=== PATIENT | male | born 1995 | race Caucasian/White ===

== ENCOUNTER 2017-06-25 21:18 | Inpatient (IN) | payer BC, OTHER ==
[~2017-06-25] VITALS: Ht 170.2 cm; Wt 72.5 kg
[2017-06-25 21:27] VITALS: O2SAT 98
[2017-06-25] MEDS ORDERED: SODIUM CHLORIDE 0.9% 1000ML 1,000 ML IV STA ×2 (21:27→22:13)
--- NOTE | 2017-06-25 21:32 | EMERGENCY ROOM VISIT NOTE ---
History Report prepared by Amber: Darrel Mcclelland Under the Supervision of: Cassia RodriguezO. First contact with patient: 21:20 Chief Complaint: OVERDOSE (INTENTIONAL) Stated Complaint: OVERDOSE History of Present Illness The patient is a 21 year old male who presents to the Emergency Room after overdosing on Benadryl at 1830 today. The patient reports taking 12 regular sized Benadryl at 1830, he did not take any other medications alongside the Benadryl. The patient states that he took the Benadryl with the intention of killing himself. He notes having suicidal thoughts since 2014, but had never tried taking extra pills in the past. The patient states that his suicidal thoughts are the result of stress at home and work. He denies experiencing any homicidal thoughts, hallucinations, feelings of being watched/followed, abdominal pain, chest pain, heart palpitations, or headache. The patient notes being dehydrated and having a runny nose. The patient denies any past medical history of asthma or IBS. He notes a history of acid reflux, for which he takes Prevacid. Source of History: patient Onset: 1829 Today Position: other (global ) Quality: other (overdose ) Associated Symptoms: No headache, No chest pain, No abdominal pain Note: Denies: Homicidal thoughts, hallucinations, feelings of being watched/followed, heart palpitations, history of Asthma or IBS. Associated Symptoms: Dehydration. Review of Systems See HPI for pertinent positives & negatives. A total of 10 systems reviewed and were otherwise negative. Past Medical & Surgical Medical Problems: (1) ADHD (2) GERD (gastroesophageal reflux disease) (3) Major depressive disorder, recurrent Family History Patient reports no known family medical history. Social History Drug Use: other (overdose on benadryl ) Marital Status: single Current/Historical Medications Scheduled Fluoxetine (Prozac), 20 MG PO BID Lisdexamfetamine Dimesylate (Vyvanse), Unknown Dose PO DAILY Lisdexamfetamine Dimesylate (Vyvanse), 1 CAP PO QAM Allergies Coded Allergies: No Known Allergies (Unverified , 06/25/17) Physical Exam Vital Signs Date Time Temp Pulse Resp B/P (MAP) Pulse Ox O2 Delivery O2 Flow Rate FiO2 06/26/17 03:38 88 18 135/72 98 Room Air 06/26/17 02:57 100 18 138/80 100 Room Air 06/26/17 01:28 94 18 128/78 99 Room Air 06/26/17 01:17 96 06/26/17 00:35 91 20 109/57 99 Room Air 06/25/17 23:37 93 20 146/91 95 Room Air 06/25/17 23:06 101 20 143/88 99 Room Air 06/25/17 22:23 96 18 157/91 98 Room Air 06/25/17 21:48 101 18 117/87 97 Room Air 06/25/17 21:27 98 Room Air 06/25/17 21:26 37.0 108 20 127/82 98 Room Air 06/25/17 21:22 111 Physical Exam GENERAL: alert, well appearing, well nourished, no distress, non-toxic EYE EXAM: normal conjunctiva, PERRL and EOM's grossly intact OROPHARYNX: no exudate, no erythema, lips, buccal mucosa, and tongue normal and mucous membranes are dry NECK: supple, no nuchal rigidity, no adenopathy, non-tender LUNGS: Clear to auscultation. Normal chest wall mechanics HEART: no murmurs, S1 normal and S2 normal ABDOMEN: abdomen soft, non-tender, normo-active bowel sounds, no masses, no rebound or guarding. BACK: Back is symmetrical on inspection and there is no deformity, no midline tenderness, no CVA tenderness. SKIN: no rashes and no bruising UPPER EXTREMITIES: upper extremities are grossly normal. LOWER EXTREMITIES: No pitting edema. NEURO EXAM: Normal sensorium, cranial nerves II-XII [grossly] intact, normal speech, no [gross] weakness of arms, no [gross] weakness of legs. Patient answers orientation questions appropriately while intermittently giving bizarre answers to other questions. Medical Decision & Procedures ER Provider Diagnostic Interpretation: Radiology results have been interpreted by the radiologist and reviewed by me. CHEST ONE VIEW PORTABLE CLINICAL HISTORY: Palpitations. Overdose. COMPARISON STUDY: No previous studies for comparison. FINDINGS: The cardiac and mediastinal contours are normal. There is no evidence of focal pulmonary consolidation. There is no evidence of failure. No pleural effusions are visualized.[ IMPRESSION: No active disease in the chest. Electronically signed by: Aroldo Faustin M.D. 06/25/2017 9:40 PM Dictated Date/Time: 06/25/2017 9:40 PM Laboratory Results 06/25/17 21:35 Red Blood Count 4.84, Mean Corpuscular Volume 91.1, Mean Corpuscular Hemoglobin 32.9, Mean Corpuscular Hemoglobin Concent 36.1, Mean Platelet Volume 9.9, Neutrophils (%) (Auto) 47.1, Lymphocytes (%) (Auto) 34.2, Monocytes (%) (Auto) 16.9, Eosinophils (%) (Auto) 1.2, Basophils (%) (Auto) 0.4, Neutrophils # (Auto ) 2.46, Lymphocytes # (Auto) 1.78, Monocytes # (Auto) 0.88, Eosinophils # (Auto ) 0.06, Basophils # (Auto) 0.02 06/25/17 21:35 Test 06/25/17 21:35 06/25/17 22:15 White Blood Count 5.21 K/uL (4.8-10.8) Red Blood Count 4.84 M/uL (4.7-6.1) Hemoglobin 15.9 g/dL (14.0-18.0) Hematocrit 44.1 % (42-52) Mean Corpuscular Volume 91.1 fL (80-100) Mean Corpuscular Hemoglobin 32.9 pg (25-34) Mean Corpuscular Hemoglobin Concent 36.1 g/dl (32-36) Platelet Count 364 K/uL (130-400) Mean Platelet Volume 9.9 fL (7.4-10.4) Neutrophils (%) (Auto) 47.1 % Lymphocytes (%) (Auto) 34.2 % Monocytes (%) (Auto) 16.9 % Eosinophils (%) (Auto) 1.2 % Basophils (%) (Auto) 0.4 % Neutrophils # (Auto) 2.46 K/uL (1.4-6.5) Lymphocytes # (Auto) 1.78 K/uL (1.2-3.4) Monocytes # (Auto) 0.88 K/uL (0.11-0.59) Eosinophils # (Auto) 0.06 K/uL (0-0.5) Basophils # (Auto) 0.02 K/uL (0-0.2) RDW Standard Deviation 44.0 fL (36.4-46.3) RDW Coefficient of Variation 13.3 % (11.5-14.5) Immature Granulocyte % (Auto) 0.2 % Immature Granulocyte # (Auto) 0.01 K/uL (0.00-0.02) Prothrombin Time 10.8 SECONDS (9.0-12.0) Prothromb Time International Ratio 1.0 (0.9-1.1) Anion Gap 9.0 mmol/L (3-11) Est Creatinine Clear Calc Drug Dose 116.0 ml/min Estimated GFR () 133.0 Estimated GFR (Non- 114.8 BUN/Creatinine Ratio 7.4 (10-20) Calcium Level 9.3 mg/dl (8.5-10.1) Phosphorus Level 3.0 mg/dl (2.5-4.9) Magnesium Level 2.4 mg/dl (1.8-2.4) Total Bilirubin 0.2 mg/dl (0.2-1) Aspartate Amino Transf (AST/SGOT) 22 U/L (15-37) Alanine Aminotransferase (ALT/SGPT) 45 U/L (12-78) Alkaline Phosphatase 186 U/L (45-117) Total Protein 8.4 gm/dl (6.4-8.2) Albumin 4.1 gm/dl (3.4-5.0) Globulin 4.3 gm/dl (2.5-4.0) Albumin/Globulin Ratio 0.9 (0.9-2) Lipase 109 U/L (73-393) Thyroid Stimulating Hormone (TSH) 4.950 uIu/ml (0.300-4.500) Free Thyroxine 0.98 ng/dl (0.80-1.60) Salicylates Level 2.1 mg/dl (2.8-20) Acetaminophen Level < 2 ug/ml (10-30) Ethyl Alcohol mg/dL < 3.0 mg/dl (0-3) Urine Color YELLOW Urine Appearance CLEAR (CLEAR) Urine pH 7.5 (4.5-7.5) Urine Specific [place] 1.012 (1.000-1.030) Urine Protein NEG (NEG) Urine Glucose (UA) NEG (NEG) Urine Ketones NEG (NEG) Urine Occult Blood NEG (NEG) Urine Nitrite NEG (NEG) Urine Bilirubin NEG (NEG) Urine Urobilinogen NEG (NEG) Urine Leukocyte Esterase NEG (NEG) Urine Opiates Screen NEG (NEG) Urine Methadone, Qualitative NEG (NEG) Urine Barbiturates NEG (NEG) Urine Phencyclidine (PCP) Level NEG (NEG) Ur Amphetamine/Methamphetamine POS (NEG) MDMA (Ecstasy) Screen NEG (NEG) Urine Benzodiazepines Screen NEG (NEG) Urine Cocaine Metabolite NEG (NEG) Urine Marijuana (THC) NEG (NEG) Laboratory results per my review. Medications Administered Medications (Trade) Dose Ordered Sig/Mert Route Start Time Stop Time Status Last Admin Dose Admin Sodium Chloride 1,000 ml @ 999 mls/hr Q1H1M STAT IV 06/25/17 21:27 06/25/17 22:27 DC 06/25/17 21:45 999 MLS/HR Sodium Chloride 1,000 ml @ 999 mls/hr Q1H1M STAT IV 06/25/17 22:13 06/25/17 23:13 DC 06/25/17 22:13 999 MLS/HR Potassium Chloride (Klor-Con M10) 40 meq NOW STAT PO 06/26/17 02:37 06/26/17 02:38 DC 06/26/17 02:56 40 MEQ ECG Per My Interpretation Indication: toxicologic Rate (beats per minute): 107 Rhythm: sinus tachycardia Findings: no acute ischemic change, no ectopy, other (normal axis, normal intervals, no terminal r wave in avr. ) ED Course 2120: The patient was evaluated in room A3. A complete history and physical exam was performed. 7: Ordered Sodium Chloride 1000 ml @ 999 mls/hr IV 3: Ordered Sodium Chloride 1000 ml @ 999 mls/hr IV 2317: I reevaluated the patient. He is resting comfortably and his heart rate has improved. Per the patient's family, the patient had recently gotten engaged to his girlfriend after finding out that his girlfriend was . The patient's girlfriend had a miscarriage, and they subsequently ended their relationship. 0145: No further tachycardia. Pt states feeling well. No other new symptoms. No confusion/hallucinations. 0210: Discussed with Juli Ramirez, she will evaluate the patient for admission. 0309: Voluntary admission form signed. Patient to be placed on 3 S. Medical Decision Differential diagnosis: Etiologies such as toxicologic, infection, hypoglycemia, electrolyte abnormalities, cardiac sources, intracerebral event, neurologic, as well as others were entertained. Pt with mild anticholinergic symptoms noted at presentation. These resolved with IVF. Pt outside window for activated charcoal. Pt monitored thru half life of benadryl without any recurrent anticholinergic or delayed symptoms or reactions. Pt seen by Ashley from 3S and and 201 signed. VS remained stable, other labs reassuring. T4 added. K repleted. I do not suspect any additional coingestion, infection, or trauma. Pt with depression and SI. Medication Reconcilliation Current Medication List: was personally reviewed by me Blood Pressure Screening Patient's blood pressure: Elevated blood pressure Blood pressure disposition: Elevated BP felt to be situational Impression Primary Impression: Intentional overdose of drug in tablet form Additional Impression: Suicidal ideation Scribe Attestation The scribe's documentation has been prepared under my direction and personally reviewed by me in its entirety. I confirm that the note above accurately reflects all work, treatment, procedures, and medical decision making performed by me. Departure Information Dispostion Still a Patient Referrals No Doctor, Assigned (PCP) Patient Instructions My [facility] Problem Qualifiers
--- NOTE | 2017-06-25 21:41 | DIAGNOSTIC IMAGING REPORT ---
CHEST ONE VIEW PORTABLE CLINICAL HISTORY: Palpitations. Overdose. COMPARISON STUDY: No previous studies for comparison. FINDINGS: The cardiac and mediastinal contours are normal. There is no evidence of focal pulmonary consolidation. There is no evidence of failure. No pleural effusions are visualized.[ IMPRESSION: No active disease in the chest. Electronically signed by: Aroldo Faustin M.D. 06/25/2017 9:40 PM Dictated Date/Time: 06/25/2017 9:40 PM
[2017-06-25] MEDS ORDERED: LISD20CA PO (21:49)
[2017-06-25 21:57] LABS: BASO % 0.4 %; BASO ABS # 0.02 K/uL (0-0.2); EOS % 1.2 %; EOS ABS # 0.06 K/uL (0-0.5); HEMATOCRIT 44.1 % (42-52); HEMOGLOBIN 15.9 g/dL (14.0-18.0); IG# 0.01 K/uL (0.00-0.02); LYMPH % 34.2 %; LYMPH ABS # 1.78 K/uL (1.2-3.4); MEAN CELL VOLUME 91.1 fL (80-100); MEAN CORPUSCULAR HEMOGLOBIN 32.9 pg (25-34); MEAN CORPUSCULAR HGB CONC 36.1 g/dl (32-36); MEAN PLATELET VOLUME 9.9 fL (7.4-10.4); MONO % 16.9 %; MONO ABS # 0.88 K/uL (0.11-0.59); NEUT % 47.1 %; NEUT ABS # 2.46 K/uL (1.4-6.5); PLATELET COUNT 364 K/uL (130-400); RED CELL DISTRIBUTION WIDTH CV 13.3 % (11.5-14.5); WHITE BLOOD COUNT 5.21 K/uL (4.8-10.8)
[2017-06-25 22:16] LABS: ALBUMIN 4.1 gm/dl (3.4-5.0); CALCIUM 9.3 mg/dl (8.5-10.1); CREATININE 0.95 mg/dl (0.60-1.40); POTASSIUM 3.3 mmol/L (3.5-5.1)
[2017-06-25 22:27] LABS: TOTAL PROTEIN 8.4 gm/dl (6.4-8.2)
[2017-06-26] MEDS ORDERED: POTASSIUM CHLORIDE 10 MEQ TABCR PO STA (02:37)
[2017-06-26 03:38] VITALS: O2SAT 98
[2017-06-26] MEDS ORDERED: NURSING VERBAL MED ORDER ONE (03:45)
[2017-06-26] MEDS ORDERED: ALUMINUM/MAGNESIUM SUSP 30 ML UDC PO PRN (04:00)
[2017-06-26] MEDS ORDERED: BISMUTH SUBSALICYLATE PER ML OMNICELL CHARGE PO PRN (04:00)
[2017-06-26] MEDS ORDERED: MAGNESIUM HYDROXIDE SUSP 30 ML UDC PO PRN (04:00)
[2017-06-26] MEDS ORDERED: SODIUM CHLORIDE 0.65% NA SOLN 45 ML (OCEAN) PRN (04:00)
[2017-06-26] MEDS ORDERED: ACETAMINOPHEN 325 MG TAB PO PRN (04:00)
[2017-06-26] MEDS ORDERED: hydrOXYzine HCL 25 MG TAB PO PRN ×2 (04:00)
[2017-06-26 05:02] VITALS: BP 132/72; PULSE 88; TEMP 37; Ht 170.2 cm; Wt 72.5 kg
[2017-06-26] MEDS ORDERED: LISD50CA4 PO (05:29)
[2017-06-26] MEDS ORDERED: FLUO20CA35 PO (06:47)
[2017-06-26 06:58] VITALS: BP_SYST 124; BP_DIAS 70; BP_DIAS 73; PULSE 64; PULSE 96; TEMP 36.5
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
[2017-06-26] MEDS ORDERED: COUGH DROP (SUGAR FREE) LOZ 24 LOZ/1 BOX LOZ PRN (13:00)
[2017-06-26] MEDS: NICOTINE 7 MG/24 HR TDSY TD SCH (14:07)
[2017-06-27 06:58] VITALS: BP_SYST 125; BP_SYST 132; BP_DIAS 75; BP_DIAS 76; PULSE 58; PULSE 88; TEMP 36.6
[2017-06-27] MEDS: NICOTINE 7 MG/24 HR TDSY TD SCH (09:10)
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
[2017-06-28 06:49] VITALS: BP_SYST 117; BP_SYST 124; BP_DIAS 68; PULSE 65; PULSE 79; TEMP 36.3
[2017-06-28] MEDS: NICOTINE 7 MG/24 HR TDSY TD SCH (09:07)
[2017-06-28] MEDS: FLUOXETINE HCL 20 MG CAP PO SCH (09:07)
--- NOTE | 2017-06-28 13:05 | Psychiatric Progress Notes ---
Progress Note Date of Service Jun 28, 2017. Interval History Jatin Sarabia is a 21-year-old male admitted on Jun 26, 2017 at 03:48 who currently lives in [place], [place] with his mother, father, and 3 younger brothers , has a history of depression and ADHD, and was admitted on a 201 voluntary commitment after a suicide attempt by overdose on diphenhydramine. He was brought to the ER by ambulance from home. Chief Complaint "Good.". Subjective Patient was seen & assessed interval progress reviewed with Treatment Team. He reports that his mood is good today. He is adjusting to being on the unit, and finding support from some of the male peers. He has been visiting with his parents and they are encouraging him to consider going to a place they call [facility], which is a spiritually based residential facility, considered to be a form of rehab. He was at first not interested, fearing that he would be mandated to stay there they entire year of the proposed treatment, but his mother reassured him that if he didn't think that it was working, he could leave. He is now willing to explore this as an option. I informed him that we have collaborated with his OP psychiatrist and we are agreed that we will DC all stimulants at this time, due to his recent history of abusing substances, which he understands. He is feeling more optimistic, and denies any SI since admission. He denies side effects to meds. Review of Systems Constitutional: No fever, No chills, No sweats, No weight loss, No weakness, No fatigue, No problem reported ENT: No hearing loss, No unusual epistaxis, No nasal symptoms, No sore throat, No tinnitus, No dental problems, No trouble swallowing, No problem reported Respiratory: No cough, No sputum, No wheezing, No shortness of breath, No dyspnea on exertion, No dyspnea at rest, No hemoptysis, No problem reported Cardiovascular: No chest pain, No orthopnea, No PND, No edema, No claudication , No palpitations, No problem reported Abdomen: No pain, No nausea, No vomiting, No diarrhea, No constipation, No GI bleeding, No problem reported Musculoskeletal: No joint pain, No muscle pain, No swelling, No calf pain, No problem reported Neurologic: No memory loss, No paralysis, No weakness, No numbness/tingling, No vertigo, No balance problems, No problem reported Psychiatric: No depression symptoms, No anhedonism, No anxiety, No insomnia, No substance abuse, No problem reported Integumentary: No rash, No itch, No new/changing skin lesions, No color change , No bleeding, No problem reported Sleep Information Total Hours of Sleep: 7.00 Meal Information Percent of Breakfast Consumed: 100 Percent of Lunch Consumed: 100 Percent of Dinner Consumed: 100 Mental Status Exam During interview pt is: alert and oriented, cooperative Appearance: appropriately dressed, disheveled, other (Malodorous, unshaven, short hair is disheveled, wearing glasses) Eye contact is: good Motor behavior is: steady gait & station, no abnormal motor movements Speech: normal in rate, rhythm & volume Affect: constricted Mood is: other ("Good.") Thought process: goal directed, linear, logical Thought content: reality based without delusions Suicidal thought are: denied (But admits to suicide attempt by overdose prior to admission) Homicidal thoughts are: denied Hallucinations: denies auditory, denies visual Cognition: memory grossly intact (Except following overdose), attention grossly intact, language grossly intact Intelligence estimated to be: consistent with level of education Insight: limited Judgement: limited Summary of Past History Records from [facility] reviewed. Most recent appointment with Dr. Melara was on 04/28/2017, at which time the patient reported he had run out of medications for several weeks. He had not been seen since November 2016, and was supposed to follow up in 12 weeks. He noted mood and focus were both worse when off medications, and was started back on Vyvanse and Prozac at his previous doses. 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 He continued to report lack of interest and motivation, but good attention and impulsivity. Anxiety was improved, and he was better able to interact with strangers at work. He had recently had all of his upper teeth removed due to poor dentition. Current diagnoses are unspecified depression, unspecified anxiety, and ADHD combined type. Spoke with Dr. Melara, who states that [facility]'s biggest issue and outpatient treatment has been repeated noncompliance. He often goes off medications for months at a time and does not follow up as directed. He has not been compliant with therapy and has not been seen by his therapist and months. He has continued him on fluoxetine due to the lower risk of discontinuation syndrome with missed doses/noncompliance. Discussed options to target depression and anxiety, including increasing fluoxetine versus switching to a different antidepressant, however he would have to be willing to commit to good medication adherence in order to switch to another agent. Also discussed recommendations to discontinue Focalin due to substance abuse, and consider a retrial of Strattera. Dr. Melara also recommends the patient be re-referred for individual therapy and substance abuse treatment through [facility]. Medication Trials Dexedrine Spansules, Focalin XR, Focalin, Concerta, Adderall, Strattera, quetiapine. He did not have a good response to most ADHD medications, but does well with Vyvanse. Restoril has been used for sleep in the past. Impression Adjusting to the unit and is now considering a rehab suggested by his parents, [facility], which has a year long program. We are recommending DC of all controlled substances at this time due to substance abuse. Prozac restarted, today. Will consider increasing to 60 mg. in near future. Plan (1) Suicidal ideation The patient is admitted to [facility] ([facility] unit) on q 15 min checks (behavioral with suicide precautions) for safety. The patient will participate in group, recreational and milieu therapies and will be offered additional individual and family sessions as clinically appropriate. 06/27 -family meeting held yesterday. Parents removed drug paraphernalia, and confirmed that guns are secured and he will not have access. Should also discuss a plan for them to manage his medications, specifically stimulant medications, as they state he has been abusing them and running out early. (2) Major depressive disorder, recurrent 06/26 - Continue current medications: Prozac 40mg qAM - Coordination of care with outpatient provider - Encourage participation in group programming including activities and therapy - Family meeting with identified supports if willing 06/27 -Continue current medications -fluoxetine was not ordered on admission, so will resume it today. Patient indicates that he does not think medications have been especially helpful recently, but also states mood worsened in the context of his breakup, and was good before that. In addition, he has been abusing multiple substances, which also impacts mood. We will contact Dr. Melara to discuss his medications and can consider the option of switching him to a different antidepressant. -Family meeting held with parents yesterday, who are supportive. 06/28 - Continue current meds. Consider increasing Prozac to 60 mg. soon - Explore D&A treatment including [facility] rehab (3) ADHD 06/26 - Will hold Vyvanse 50mg while here on the unit 06/27 -Discussed case with Dr. Melara, outpatient psychiatrist; in light of substance abuse, will discontinue Focalin. Can consider a retrial of Strattera. (4) Substance abuse Patient has been abusing Robitussin, Benadryl, cannabis, and stimulants (? Prescription stimulants as well as recent use of cocaine and methamphetamine). UDS positive for amphetamine/methamphetamine on admission, and will need to follow up on confirmatory report. Discussed with outpatient psychiatrist, and will discontinue Focalin as it is a controlled substance and unsafe given polysubstance abuse. Refer to [facility] for substance abuse treatment. 06/28 - Recommend D&A counseling, through [facility] - Patient considering a year long program at [facility] Discharge / Aftercare Planning Primary Care Physician: Name: Dr. Peraza Appointment Notes: appoinemtn to be scheduled as needed Psychiatrist: Name: Luciana Melara Date of Appointment: Jul 14, 2017 Time of Appointment: 10:00 am Appointment Notes: [facility] [place] [address] Therapist: Name: Luciana Oakley Date of Appointment: Jul 05, 2017 Time of Appointment: 10:00 am Appointment Notes: [facility] [place] [employer] [facility] [address] [employer]er: Name: adalberto Visit Code E&M Code: 41831 Inventory Assets Strengths: current outpatient providers, support of family Needs: healthy coping skills, processing and acceptance of termination of relationship Risk Factors Assessment Male: Yes : Yes /single/: Yes Higher / Fall in social status: No Health problems: No Mental Health Diagnoses: Yes Previous attempt: No Family history of suicide: No Previous psychiatric stay: No Hopelessness: Yes Smoker: Yes Protective Factors Assessment Adventist beliefs: Yes : No Responsible for young children: No Employed: Yes Stable relationships: Yes Supportive family: Yes Good rapport with provider: Yes Data Vital Signs Last 24 Hrs: Date Time Temp Pulse Resp B/P (MAP) Pulse Ox O2 Delivery O2 Flow Rate FiO2 06/28/17 06:49 36.3 65 16 117/68 79 124/68 Meds Administered Last 24 Hrs: Meds Administered (Past 24Hrs) Medications (Trade) Dose Ordered Sig/Mert Route Start Time Stop Time Status Last Admin Dose Admin Nicotine (Nicoderm Cq 7 Mg Patch) 1 patch QAM TD 06/27/17 09:00 07/27/17 08:59 06/28/17 09:07 1 PATCH Miscellaneous (Remove Nicoderm Patch) 1 ea HS N/A 06/26/17 22:00 07/26/17 21:59 06/27/17 21:16 1 EA Fluoxetine HCl (Prozac Cap) 40 mg QAM PO 06/28/17 09:00 07/28/17 08:59 06/28/17 09:07 40 MG Lab Results Last 24 Hrs: 06/25/17 21:35 Red Blood Count 4.84, Mean Corpuscular Volume 91.1, Mean Corpuscular Hemoglobin 32.9, Mean Corpuscular Hemoglobin Concent 36.1, Mean Platelet Volume 9.9, Neutrophils (%) (Auto) 47.1, Lymphocytes (%) (Auto) 34.2, Monocytes (%) (Auto) 16.9, Eosinophils (%) (Auto) 1.2, Basophils (%) (Auto) 0.4, Neutrophils # (Auto ) 2.46, Lymphocytes # (Auto) 1.78, Monocytes # (Auto) 0.88, Eosinophils # (Auto ) 0.06, Basophils # (Auto) 0.02 06/25/17 21:35 Test 06/25/17 21:35 06/25/17 22:15 White Blood Count 5.21 K/uL (4.8-10.8) Red Blood Count 4.84 M/uL (4.7-6.1) Hemoglobin 15.9 g/dL (14.0-18.0) Hematocrit 44.1 % (42-52) Mean Corpuscular Volume 91.1 fL (80-100) Mean Corpuscular Hemoglobin 32.9 pg (25-34) Mean Corpuscular Hemoglobin Concent 36.1 g/dl (32-36) Platelet Count 364 K/uL (130-400) Mean Platelet Volume 9.9 fL (7.4-10.4) Neutrophils (%) (Auto) 47.1 % Lymphocytes (%) (Auto) 34.2 % Monocytes (%) (Auto) 16.9 % Eosinophils (%) (Auto) 1.2 % Basophils (%) (Auto) 0.4 % Neutrophils # (Auto) 2.46 K/uL (1.4-6.5) Lymphocytes # (Auto) 1.78 K/uL (1.2-3.4) Monocytes # (Auto) 0.88 K/uL (0.11-0.59) Eosinophils # (Auto) 0.06 K/uL (0-0.5) Basophils # (Auto) 0.02 K/uL (0-0.2) RDW Standard Deviation 44.0 fL (36.4-46.3) RDW Coefficient of Variation 13.3 % (11.5-14.5) Immature Granulocyte % (Auto) 0.2 % Immature Granulocyte # (Auto) 0.01 K/uL (0.00-0.02) Prothrombin Time 10.8 SECONDS (9.0-12.0) Prothromb Time International Ratio 1.0 (0.9-1.1) Anion Gap 9.0 mmol/L (3-11) Est Creatinine Clear Calc Drug Dose 116.0 ml/min Estimated GFR () 133.0 Estimated GFR (Non- 114.8 BUN/Creatinine Ratio 7.4 (10-20) Calcium Level 9.3 mg/dl (8.5-10.1) Phosphorus Level 3.0 mg/dl (2.5-4.9) Magnesium Level 2.4 mg/dl (1.8-2.4) Total Bilirubin 0.2 mg/dl (0.2-1) Aspartate Amino Transf (AST/SGOT) 22 U/L (15-37) Alanine Aminotransferase (ALT/SGPT) 45 U/L (12-78) Alkaline Phosphatase 186 U/L (45-117) Total Protein 8.4 gm/dl (6.4-8.2) Albumin 4.1 gm/dl (3.4-5.0) Globulin 4.3 gm/dl (2.5-4.0) Albumin/Globulin Ratio 0.9 (0.9-2) Lipase 109 U/L (73-393) Thyroid Stimulating Hormone (TSH) 4.950 uIu/ml (0.300-4.500) Free Thyroxine 0.98 ng/dl (0.80-1.60) Salicylates Level 2.1 mg/dl (2.8-20) Acetaminophen Level < 2 ug/ml (10-30) Ethyl Alcohol mg/dL < 3.0 mg/dl (0-3) Urine Color YELLOW Urine Appearance CLEAR (CLEAR) Urine pH 7.5 (4.5-7.5) Urine Specific [place] 1.012 (1.000-1.030) Urine Protein NEG (NEG) Urine Glucose (UA) NEG (NEG) Urine Ketones NEG (NEG) Urine Occult Blood NEG (NEG) Urine Nitrite NEG (NEG) Urine Bilirubin NEG (NEG) Urine Urobilinogen NEG (NEG) Urine Leukocyte Esterase NEG (NEG) Urine Opiates Screen NEG (NEG) Urine Methadone, Qualitative NEG (NEG) Urine Barbiturates NEG (NEG) Urine Phencyclidine (PCP) Level NEG (NEG) Urine Amphetamines Confirmation 1810 NG/ML ([id number]=720) Ur Amphetamine/Methamphetamine POS (NEG) Urine Methamphetamine Confirmation NEGATIVE NG/ML ([id number]=025) MDMA (Ecstasy) Screen NEG (NEG) Urine Benzodiazepines Screen NEG (NEG) Urine Cocaine Metabolite NEG (NEG) Urine Marijuana (THC) NEG (NEG)
[2017-06-29 06:49] VITALS: BP_SYST 125; BP_SYST 126; BP_DIAS 70; BP_DIAS 77; PULSE 67; PULSE 69; TEMP 36.6
[2017-06-29] MEDS: NICOTINE 7 MG/24 HR TDSY TD SCH (08:46)
[2017-06-29] MEDS: FLUOXETINE HCL 20 MG CAP PO SCH (08:46)
--- NOTE | 2017-06-29 11:03 | Psychiatric Progress Notes ---
Progress Note Date of Service Jun 29, 2017. Interval History Jatin Sarabia is a 21-year-old male admitted on Jun 26, 2017 at 03:48 who currently lives in [place], [place] with his mother, father, and 3 younger brothers , has a history of depression and ADHD, and was admitted on a 201 voluntary commitment after a suicide attempt by overdose on diphenhydramine. He was brought to the ER by ambulance from home. Chief Complaint "I can definitely tell the Prozac is working, I feel a lot better". Subjective Patient was seen & assessed interval progress reviewed with Nursing. Pt was seen today to discuss progress since admission. Pt states he has been doing well and has noticed a difference since restarting Prozac 40mg. Pt states his mood is improved. He denies SI, but states some evenings are hard when he starts thinking about his ex-fiance. He states he was able to use his mindfulness coping skills last evening with the chair at bedside and found this helpful. Pt reports he has completed his safety plan. Pt reports he had a family meeting with his mother and father a few days ago and felt much better after "being able to get some things off my chest." Pt states that multiple family members have been visiting him. Denies SI/HI recently. Review of Systems Psych: denies symptoms other than stated above Constitutional: denied Cardiovascular: denied GI: denied Neurologic: denied Remainder of 10 body systems also reviewed and denied other than noted above. Sleep Information Total Hours of Sleep: 6.75 Meal Information Percent of Breakfast Consumed: 100 Percent of Lunch Consumed: 100 Percent of Dinner Consumed: 100 Mental Status Exam During interview pt is: alert and oriented, cooperative Appearance: appropriately dressed, disheveled (hair is untamed) Eye contact is: good Motor behavior is: steady gait & station, no abnormal motor movements Speech: normal in rate, rhythm & volume Affect: mood congruent, euthymic Mood is: other ("I'm feeling better") Thought process: goal directed, linear, logical Thought content: reality based without delusions Suicidal thought are: denied (But admits to suicide attempt by overdose prior to admission) Homicidal thoughts are: denied Hallucinations: denies auditory, denies visual Cognition: memory grossly intact, attention grossly intact, language grossly intact Intelligence estimated to be: consistent with level of education Insight: fair Judgement: fair Summary of Past History Records from [facility] reviewed. Most recent appointment with Dr. Melara was on 04/28/2017, at which time the patient reported he had run out of medications for several weeks. He had not been seen since November 2016, and was supposed to follow up in 12 weeks. He noted mood and focus were both worse when off medications, and was started back on Vyvanse and Prozac at his previous doses. 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 He continued to report lack of interest and motivation, but good attention and impulsivity. Anxiety was improved, and he was better able to interact with strangers at work. He had recently had all of his upper teeth removed due to poor dentition. Current diagnoses are unspecified depression, unspecified anxiety, and ADHD combined type. Spoke with Dr. Melara, who states that Mandaen's biggest issue and outpatient treatment has been repeated noncompliance. He often goes off medications for months at a time and does not follow up as directed. He has not been compliant with therapy and has not been seen by his therapist and months. He has continued him on fluoxetine due to the lower risk of discontinuation syndrome with missed doses/noncompliance. Discussed options to target depression and anxiety, including increasing fluoxetine versus switching to a different antidepressant, however he would have to be willing to commit to good medication adherence in order to switch to another agent. Also discussed recommendations to discontinue Focalin due to substance abuse, and consider a retrial of Strattera. Dr. Melara also recommends the patient be re-referred for individual therapy and substance abuse treatment through [facility]. Medication Trials Dexedrine Spansules, Focalin XR, Focalin, Concerta, Adderall, Strattera, quetiapine. He did not have a good response to most ADHD medications, but does well with Vyvanse. Restoril has been used for sleep in the past. Impression Reports improvement in mood since restarting Prozac. Pt states he has been tolerating well. Discussed increase to 60mg which patient is favorable to. Reviewed potential side effects from dose increases, pt verbalized understanding. Will increase to 60mg starting tomorrow morning. Pt considering rehab for substance abuse. Discussed again with patient about holding stimulant until seen by his outpatient psychiatrist. Plan (1) Suicidal ideation The patient is admitted to [facility] ([facility] mental health unit) on q 15 min checks (behavioral with suicide precautions) for safety. The patient will participate in group, recreational and milieu therapies and will be offered additional individual and family sessions as clinically appropriate. 06/27 -family meeting held yesterday. Parents removed drug paraphernalia, and confirmed that guns are secured and he will not have access. Should also discuss a plan for them to manage his medications, specifically stimulant medications, as they state he has been abusing them and running out early. (2) Major depressive disorder, recurrent 06/26 - Continue current medications: Prozac 40mg qAM - Coordination of care with outpatient provider - Encourage participation in group programming including activities and therapy - Family meeting with identified supports if willing 06/27 -Continue current medications -fluoxetine was not ordered on admission, so will resume it today. Patient indicates that he does not think medications have been especially helpful recently, but also states mood worsened in the context of his breakup, and was good before that. In addition, he has been abusing multiple substances, which also impacts mood. We will contact Dr. Mealra to discuss his medications and can consider the option of switching him to a different antidepressant. -Family meeting held with parents yesterday, who are supportive. 06/28 - Continue current meds. Consider increasing Prozac to 60 mg. soon - Explore D&A treatment including [facility] rehab 06/29 - Pt agreeable to increasing Prozac to 60mg starting with tomorrow morning's dose - Reports safety plan has been completed. (3) ADHD 06/26 - Will hold Vyvanse 50mg while here on the unit 06/27 -Discussed case with Dr. Melara, outpatient psychiatrist; in light of substance abuse, will discontinue Focalin. Can consider a retrial of Strattera. (4) Substance abuse Patient has been abusing Robitussin, Benadryl, cannabis, and stimulants (? Prescription stimulants as well as recent use of cocaine and methamphetamine). UDS positive for amphetamine/methamphetamine on admission, and will need to follow up on confirmatory report. Discussed with outpatient psychiatrist, and will discontinue Focalin as it is a controlled substance and unsafe given polysubstance abuse. Refer to [facility] for substance abuse treatment. 06/28 - Recommend D&A counseling, through [facility] - Patient considering a year long program at [facility] Discharge / Aftercare Planning Primary Care Physician: Name: Dr. Peraza Appointment Notes: appoinemtn to be scheduled as needed Psychiatrist: Name: Luciana Melara Date of Appointment: Jul 14, 2017 Time of Appointment: 10:00 am Appointment Notes: [address] [place] [address] Therapist: Name: Luciana Oakley Date of Appointment: Jul 05, 2017 Time of Appointment: 10:00 am Appointment Notes: [address] [place] [id number] [employer]ing Mixer: Name: adalberto Visit Code E&M Code: 50825 Inventory Assets Strengths: current outpatient providers, support of family Needs: healthy coping skills, processing and acceptance of termination of relationship Risk Factors Assessment Male: Yes : Yes /single/: Yes Higher / Fall in social status: No Health problems: No Mental Health Diagnoses: Yes Previous attempt: No Family history of suicide: No Previous psychiatric stay: No Hopelessness: Yes Smoker: Yes Protective Factors Assessment Scientologist beliefs: Yes : No Responsible for young children: No Employed: Yes Stable relationships: Yes Supportive family: Yes Good rapport with provider: Yes Data Vital Signs Last 24 Hrs: Date Time Temp Pulse Resp B/P (MAP) Pulse Ox O2 Delivery O2 Flow Rate FiO2 06/29/17 06:49 36.6 69 16 125/70 67 126/77 Meds Administered Last 24 Hrs: Meds Administered (Past 24Hrs) Medications (Trade) Dose Ordered Sig/Mert Route Start Time Stop Time Status Last Admin Dose Admin Fluoxetine HCl (Prozac Cap) 40 mg QAM PO 06/28/17 09:00 07/28/17 08:59 06/29/17 08:46 40 MG
[2017-06-30 06:33] VITALS: BP_SYST 127; BP_SYST 130; BP_DIAS 72; BP_DIAS 74; PULSE 65; PULSE 69; TEMP 36.5
[2017-06-30] MEDS: NICOTINE 7 MG/24 HR TDSY TD SCH (08:59)
[2017-06-30] MEDS ORDERED: FLUOXETINE HCL 20 MG CAP PO SCH (09:00)
[2017-06-30] MEDS ORDERED: FLUO40CA8 PO (09:09)
--- NOTE | 2017-06-30 09:21 | Discharge Instructions ---
Discharge Information Report Includes Report will include the: Discharge Instructions & Summary Admission Admission Date / Time: Jun 26, 2017 at 03:48 Reason for Admission: Adhd, Anxiety, Depression Discharge Discharge Diagnosis / Problem: Depression, substance abuse Condition at Discharge: Good Discharge Goals Goal(s): Decrease discomfort, Improve disease control Activity Recommendations Activity Limitations: resume your previous activity . Instructions / Follow-Up Instructions / Follow-Up . SPECIAL CARE INSTRUCTIONS: 1. Follow through with your scheduled aftercare appointments. If unable to keep an appointment, please call to reschedule. 2. Take your medication only as prescribed. Medication should not be changed or stopped without the approval of your doctor. In the event of worsening symptoms or concerns about side effects, contact your doctor immediately. 3. Utilize new healthy coping skills, anger management skills, and stress management skills learned during your hospitalization. Journal feelings and process them with a support person. Identify stressors or situations that may result in relapse, deterioration or inappropriate behaviors and develop a plan to deal with those issues. 4. If your coping skills are ineffective and you are in crisis, contact your outpatient providers for direction. If unable to reach your providers, please call the CAN HELP LINE AT or go to the closest Emergency Room. 5. Avoid alcohol and un-prescribed drugs. 6. You have been provided with the Mental Health Advance Directives Pamphlet for your review. AFTERCARE APPOINTMENTS: * Please call your insurance company prior to your scheduled appointment to confirm your aftercare providers are covered. Take your insurance information to your appointments. . Discharge / Aftercare Planning Primary Care Physician: Name: Dr. 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 Follow-Up Care Plan for Follow-Up Care: The patient will see Dr. Melara at [facility] in 2 weeks and D&A therapist nest week. Current Hospital Diet Patient's current hospital diet: Regular Diet Discharge Diet Recommended Diet: Regular Diet Procedures Procedures Performed: No Pending Studies Pending Studies at Discharge: No Medical Emergencies . Who to Call and When: Medical Emergencies: For questions or emergencies related to your hospital stay, please contact the Inpatient Behavioral Health Unit at [phone]. A supervisor forming and tempering is on-call 07/11 for the Behavioral Health Unit for emergencies At any time you feel your situation is an emergency, you may also call 911 immediately. . Non-Emergent Contact Non-Emergency issues call your: Psychiatrist, Therapist Past History Medical & Surgical History: (1) GERD (gastroesophageal reflux disease) Advance Directives Existing Advance Directive: No Do You Have an Existing Mental: No Existing Living Will: No Existing Power of Circular Saw Edge Fuser: No Advance Directives Info Given: To Pt/S.O. Advance Directives Reason: Declines as Mental Health Visit. Discharge Summary Admission HPI Per the Admitting provider: Jatin Sarabia is a 21-year-old male admitted to [address] [place] [address] following a suicide attempt by overdosing on Benadryl. Pt reports taking "at least 12" 25mg Benadryl liquid-gels last evening. He reports several recent stressors that have impacted his mood and have lead to SI for the past few weeks. Pt states that he was "scrolling through Facebook and seeing all the posts of everyone being happy." Pt states he then had the impulsive decision to overdose on Benadryl. The patient states he took the pills and then was called by his mother to come downstairs. Upon doing so, he states, his parents noticed his altered speech and behavior. He admitted to taking Benadryl. His mother called 911 and started driving him to the ER, he was eventually met by the ambulance en route to the hospital. Pt reports that he recently got engaged to his girlfriend of >1 year and they had found out they were expecting a baby. Pt states his fiance had a miscarriage which was difficult for them both to deal with. He reports his fiance broke off the engagement in May and gave little reason as to why. Since that time, reports state the patient had also changed jobs which added to his stress. Pt states he has had SI for the past few weeks, with a plan to overdose, but his decision to go through with it last night was impulsive. Pt reports a history of ADHD, depression, and anxiety. He has followed with Dr. Melara at [facility] "since 7th grade." He feels that his medications have been helpful, but has had difficulty with insurance which has caused issues with getting timely refills. Pt states he restarted both Prozac 40mg and Vyvanse 50mg yesterday, after being off medication for 1.5 weeks. Pt states this is a typical pattern as he has two insurances listed. 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 Pt reports depressive symptoms of low mood, helplessness, and SI. He denies difficulty sleeping stating "my sleep is significant better than normal now that I'm working full-time." He denies change in appetite, he feels his energy level has been stable. Pt denies symptoms of anxiety at this time stating his last panic attack was a long time ago. He reports 3 panic attacks during his life with symptoms of SOB, hyperventilation, sweating, and muscle tension. Pt reports he was bullied as a child from 1st - 7th grade, prior to enrolling in [employer]. Pt does report having been sick recently, complaining of nausea and vomiting ~1 week ago which has resolved. He now states he has a cough/wheezing on occasion. Pt's mother voiced concerns in the ED of patient abusing his ADHD medications. Pt denies abuse of Vyvanse with this provider. He states, "on occasion I accidentally mix up the two medications and take two Vyvanse and one Prozac, but I get super sick when I do that." PDMP queried and #30 tablets of Vyvanse 50mg last filled on 06/25/2017. Pt reports last use of illegal substance was marijuana in April. Pt does voice regret about his suicide attempt and states, "I don't WANT to , but I don't want to feel like this either." Pt denies current SI/HI, A/V hallucinations, paranoia, caridad, OCD, eating disorder, PTSD, and other psychosis. Hospital Course (1) Suicidal ideation The patient is admitted to [facility] ([facility] mental health unit) on q 15 min checks (behavioral with suicide precautions) for safety. The patient will participate in group, recreational and milieu therapies and will be offered additional individual and family sessions as clinically appropriate. 06/27 -family meeting held yesterday. Parents removed drug paraphernalia, and confirmed that guns are secured and he will not have access. Should also discuss a plan for them to manage his medications, specifically stimulant medications, as they state he has been abusing them and running out early. (2) Major depressive disorder, recurrent 06/26 - Continue current medications: Prozac 40mg qAM - Coordination of care with outpatient provider - Encourage participation in group programming including activities and therapy - Family meeting with identified supports if willing 06/27 -Continue current medications -fluoxetine was not ordered on admission, so will resume it today. Patient indicates that he does not think medications have been especially helpful recently, but also states mood worsened in the context of his breakup, and was good before that. In addition, he has been abusing multiple substances, which also impacts mood. We will contact Dr. Melara to discuss his medications and can consider the option of switching him to a different antidepressant. -Family meeting held with parents yesterday, who are supportive. 06/28 - Continue current meds. Consider increasing Prozac to 60 mg. soon - Explore D&A treatment including [facility] rehab 06/29 - Pt agreeable to increasing Prozac to 60mg starting with tomorrow morning's dose - Reports safety plan has been completed. (3) ADHD 06/26 - Will hold Vyvanse 50mg while here on the unit 06/27 -Discussed case with Dr. Melara, outpatient psychiatrist; in light of substance abuse, will discontinue Focalin. Can consider a retrial of Strattera. (4) Substance abuse Patient has been abusing Robitussin, Benadryl, cannabis, and stimulants (? Prescription stimulants as well as recent use of cocaine and methamphetamine). UDS positive for amphetamine/methamphetamine on admission, and will need to follow up on confirmatory report. Discussed with outpatient psychiatrist, and will discontinue Focalin as it is a controlled substance and unsafe given polysubstance abuse. Refer to [facility] for substance abuse treatment. 06/28 - Recommend D&A counseling, through [facility] - Patient considering a year long program at [facility] Risk Factors Assessment Male: Yes : Yes /single/: Yes Higher / Fall in social status: No Health problems: No Mental Health Diagnoses: Yes Previous attempt: No Family history of suicide: No Previous psychiatric stay: No Hopelessness: Yes Smoker: Yes Protective Factors Assessment Sikh beliefs: Yes : No Responsible for young children: No Employed: Yes Stable relationships: Yes Supportive family: Yes Good rapport with provider: Yes Day of Discharge Assessment COURSE OF HOSPITALIZATION: The patient was on her unit for 4 days. He was admitted voluntarily after taking an intentional overdose of Benadryl and a suicide attempt. He has been under multiple stressors including the breakup of the girlfriend whom he had been engaged to. They had found that they were but she miscarried. He also has been abusing multiple substances including Robitussin, cocaine, meth and cannabis. He is also been stealing from his parents. During his stay his Prozac was increased to 60 mg daily which he tolerated without side effect. His parents were involved in his treatment, attended a family meeting. Parents researched facilities for the patient that he could attend as part of drug rehab program. They were focused on a spiritual program called [facility] that is a year-long program but admission dates are only 3 times a year with next admission date being in August. He was willing to consider this. He also agreed to work towards sobriety, and does not use drugs post discharge. He will be seen at [facility] for substance use treatment. During his stay he denied any further suicidal ideation. He found benefit to the milieu therapy, spending time exercising with his peers and was a good group and individual participant. He will be returning to see Dr. Melara at upon discharge. He had been on stimulants for a prior diagnosis of ADHD. We collaborated with Dr. Melara during his stay, and we were all in agreement to discontinue stimulants in view of his drug history.[facility] TRANSITION OF CARE: I have personally reviewed the patient's medications and follow-up appointments. He has been counseled to attend all his appointments, and not alter his medications in any way until he has seen his outpatient providers. DAY OF DISCHARGE ASSESSMENT: Today the patient is requesting discharge. He feels significantly improved over admission and continues to deny any suicidal ideation. He has forward focused, looking forward to getting his life back on track. He has some concerns about losing the structure of the inpatient unit and we discussed ways he could re-create his own structure at home. He will be returning to live with his parents who will be providing supervision. Today he is casually and appropriately dressed and groomed. Gait and station are within normal limits. Eye contact is good. Affect is restricted. Speech is of normal rate volume and tone. Thoughts are organized, goal-directed, and without evidence of thought disorder. Recent and remote memory are intact per conversation. Intelligence is estimated to be average. Insight and judgment are improved over admission. Laboratory Test 06/25/17 21:35 06/25/17 22:15 White Blood Count 5.21 Red Blood Count 4.84 Hemoglobin 15.9 Hematocrit 44.1 Mean Corpuscular Volume 91.1 Mean Corpuscular Hemoglobin 32.9 Mean Corpuscular Hemoglobin Concent 36.1 Platelet Count 364 Mean Platelet Volume 9.9 Neutrophils (%) (Auto) 47.1 Lymphocytes (%) (Auto) 34.2 Monocytes (%) (Auto) 16.9 Eosinophils (%) (Auto) 1.2 Basophils (%) (Auto) 0.4 Neutrophils # (Auto) 2.46 Lymphocytes # (Auto) 1.78 Monocytes # (Auto) 0.88 Eosinophils # (Auto) 0.06 Basophils # (Auto) 0.02 RDW Standard Deviation 44.0 RDW Coefficient of Variation 13.3 Immature Granulocyte % (Auto) 0.2 Immature Granulocyte # (Auto) 0.01 Prothrombin Time 10.8 Prothrombin Time INR 1.0 Sodium Level 138 Potassium Level 3.3 Chloride Level 101 Carbon Dioxide Level 28 Anion Gap 9.0 Blood Urea Nitrogen 7 Creatinine 0.95 Est Creatinine Clear Calc Drug Dose 116.0 Estimated GFR () 133.0 Estimated GFR (Non- 114.8 BUN/Creatinine Ratio 7.4 Random Glucose 88 Calcium Level 9.3 Phosphorus Level 3.0 Magnesium Level 2.4 Total Bilirubin 0.2 Aspartate Amino Transferase (AST) 22 Alanine Aminotransferase (ALT) 45 Alkaline Phosphatase 186 Total Protein 8.4 Albumin 4.1 Globulin 4.3 Albumin/Globulin Ratio 0.9 Lipase 109 Thyroid Stimulating Hormone (TSH) 4.950 Free Thyroxine 0.98 Salicylates Level 2.1 Acetaminophen Level < 2 Ethyl Alcohol mg/dL < 3.0 Urine Color YELLOW Urine Appearance CLEAR Urine pH 7.5 Urine Specific [place] 1.012 Urine Protein NEG Urine Glucose (UA) NEG Urine Ketones NEG Urine Occult Blood NEG Urine Nitrite NEG Urine Bilirubin NEG Urine Urobilinogen NEG Urine Leukocyte Esterase NEG Urine Opiates Screen NEG Urine Methadone, Qualitative NEG Urine Barbiturates NEG Urine Phencyclidine (PCP) Level NEG Urine Amphetamines Confirmation 1809 Ur Amphetamine/Methamphetamine POS Urine Methamphetamine Confirmation NEGATIVE MDMA (Ecstasy) Screen NEG Urine Benzodiazepines Screen NEG Urine Cocaine Metabolite NEG Urine Marijuana (THC) NEG Total Time Total Time Spent (min): Greater than 30 minutes Total Time Included: examination of the patient, discharge planning, medication reconciliation, communication with other providers Tobacco Cessation at Discharge Smoking Status: Current Every Day Smoker (1/4 pack per day for the past 3-4 years) FDA approved Prescription: declined med & out pt counseling
--- NOTE | 2017-06-30 10:12 | Psych Management Progress Note ---
Psychiatry Miscellaneous Date of Service: Jun 30, 2017. Patient seen, MS assessed. Rates mood as 10/10 and expresses readiness of discharge. Encouraged cooperation with aftercare and medication plan. I personally participated in the medical decision making around his discharge.
== END 2017-06-30 12:25 | disposition home or self-care (01) | DRG 885 ==
LOC: C.EDA 21:19 → EDBD 21:19 → C.MHU 06-26 03:48
PROVIDERS: ADMIT Psychiatry & Neurology Psychiatry; ATTEND Psychiatry & Neurology Psychiatry
DX: F33.9 Major depressive disorder, recurrent, unspecified (principal); T45.0X2A Poisoning by antiallergic and antiemetic drugs, intentional self-harm, initial encounter; F90.9 Attention-deficit hyperactivity disorder, unspecified type; K21.9 Gastro-esophageal reflux disease without esophagitis; F17.200 Nicotine dependence, unspecified, uncomplicated; F12.10 Cannabis abuse, uncomplicated; Y92.019 Unspecified place in single-family (private) house as the place of occurrence of the external cause